=== PATIENT | female | born 1995 | race Caucasian/White ===

== ENCOUNTER 2021-03-23 13:52 | Emergency (ER) | payer BC, SELFPAY ==
[2021-03-23 13:55] VITALS: BP 126/90; PULSE 120; RESP 20; TEMP 36; O2SAT 100
--- NOTE | 2021-03-23 14:00 | DI.US_ITS ---
Exam(s) US ABDOMEN EXAM: US ABDOMEN CLINICAL HISTORY: epigastric pain, vomiting TECHNIQUE: Ultrasound abdomen performed using standard protocol. COMPARISON: No exams were available for comparison FINDINGS: ABDOMINAL AORTA AND IVC: Visualized portions normal caliber. PANCREAS: Normal where visualized. LIVER: Normal. Hepatopedal flow in the Portal Vein. The liver measures 13.7 cm long. GALLBLADDER: Mobile gallstones. No evidence of wall thickening. No pericholecystic fluid identified. There is sludge seen within the gallbladder. BILIARY SYSTEM: Common bile duct measures 7.7 mm. No intrahepatic biliary ductal dilation. There are 2 echogenic foci seen in the common bile duct suspicious for choledocholithiasis. They each measure 4 mm. VINCENT'S SIGN: Negative. KIDNEYS: Kidneys are symmetric in size. No evidence of renal calculi. No evidence of hydronephrosis. No renal mass or cyst identified. SPLEEN: Not enlarged. ASCITES: None seen. IMPRESSION: 1. Cholelithiasis and gallbladder sludge. No gallbladder wall thickening or pericholecystic fluid. There is a negative sonographic Vincent sign. 2. Findings suspicious for choledocholithiasis. Mildly enlarged common bile duct at 7.7 mm. 3. Results of this exam have been verbally communicated with provider. DATA REPOSITORY:
--- NOTE | 2021-03-23 14:10 | W.ED.GENAD ---
Discharge Plan Disposition Patient Disposition: HOME Condition: Improving Discharge Details Clinical Impression: Choledocholithiasis, Left against medical advice Primary Care Provider: None,None ED Provider: Rashi Palacios Home Meds and New Rx's Prescriptions: Discontinued bismuth subsalicylate [Pepto-Bismol] 262 mg/15 mL Suspension PO RF: 0 Discharge Instructions Additional Instructions: You are electing to leave AGAINST MEDICAL ADVICE. Your risks include worsening pain, development of fever or infection, seizure, or possibly . As we discussed you have a common bile duct stone causing obstruction and jaundice. I discussed your case with on-call gastroenterology at [facility], Dr. Barry. He recommended admission which we discussed and you have declined. The gastroenterology team will reach out to you on your home phone number tomorrow. The main contact number at [facility] is [phone] Return at any time for reevaluation. Observe a bland or even liquid diet. Medical Decision Making Pleasant and delightful 26-year-old female presents with 4 to 5 days of intermittent episodes of postprandial epigastric pain. Initially was associated with vomiting which has resolved. This morning she had less pain after eating a small meal but noticed that her eyes looked yellow, and therefore referred to the ER for evaluation. Patient arrives ER afebrile, with a borderline resting tachycardia. Differential diagnosis includes acute cholecystitis, choledocholithiasis, liver mass. Patient declined IV access, had blood draw and was referred for laboratory testing and abdominal ultrasound. Patient's ultrasound, FINDINGS: ABDOMINAL AORTA AND IVC: Visualized portions normal caliber. PANCREAS: Normal where visualized. LIVER: Normal. Hepatopedal flow in the Portal Vein. The liver measures 13.7 cm long. GALLBLADDER: Mobile gallstones. No evidence of wall thickening. No pericholecystic fluid identified. There is sludge seen within the gallbladder. BILIARY SYSTEM: Common bile duct measures 7.7 mm. No intrahepatic biliary ductal dilation. There are 2 echogenic foci seen in the common bile duct suspicious for choledocholithiasis. They each measure 4 mm. MCNULTY'S SIGN: Negative. KIDNEYS: Kidneys are symmetric in size. No evidence of renal calculi. No evidence of hydronephrosis. No renal mass or cyst identified. SPLEEN: Not enlarged. ASCITES: None seen. IMPRESSION: 1. Cholelithiasis and gallbladder sludge. No gallbladder wall thickening or pericholecystic fluid. There is a negative sonographic Mcnulty sign. 2. Findings suspicious for choledocholithiasis. Mildly enlarged common bile duct at 7.7 mm. Laboratories: White blood cell count 7, hematocrit 43, platelets 295. Chemistries are notable for total bili of 10.7, AST 85, ALT 357, alk phos 187. Lipase is 80. BUN 15 with creatinine 0.6. Case discussed with on-call gastroenterology at [facility], Dr. Barry. He recommends admission, n.p.o. after midnight with potential for transfer for ERCP tomorrow. We did discuss that the patient may refuse admission, which she has, and that the gastroenterology department would reach out to her at home by phone tomorrow. Patient demonstrates decision-making capacity to me. We discussed the risks of leaving AGAINST MEDICAL ADVICE including worsening, infection, seizure, or . She understands these risks and accepts them. She understands the need for ERCP. She understands she may return at any time for reevaluation. HPI General Mode of arrival: ambulatory. Date/Time Provider Initiated Documentation: 03/23/21 13:52. Limitations to Documentation: no limitations. Information obtained by: patient. History of Present Illness 26 year old F presents to the emergency department with the chief complaint of Epigastric pain postprandial pain 4 days, described as moderate, Quality is described as dull, and is localized to the abdomen. Patient reports no radiation. Patient started experiencing this day(s) and it has been intermittent and now resolved. No relieving factors improve symptom(s), Eating worsens symptoms . Patient notes loss of appetite and nausea/vomiting; denies fever/chills. Patient did receive the following treatments prior to arrival, none Related Data Allergies Allergy/AdvReac Type Severity Reaction Status Date / Time nickel Allergy Intermediate rash Verified 03/23/21 14:00 General Stated Complaint: Abd Prob FLORENTIN: 3 Review of Systems Narrative: No fever. Normal bowel movements although they were dark in color after Pepto-Bismol. Denies recent illness. 6 systems reviewed and otherwise negative [facility] Active Problem List (Updated 03/23/21 @ 17:35 by Rashi Palacios MD) Choledocholithiasis (Acute) Left against medical advice (Acute) Abdominal pain (Acute) Endometriosis (Chronic) Medical History (Updated 03/23/21 @ 17:35 by Rashi Palacios MD) Delayed postoperative wound closure Intra-abdominal abscess (~05/2019) history of intra-abdominal abscess & pelvis abscess 05/23/[address] Chaudhari [facility] Recurrent left pleural effusion Surgical History History of appendectomy History of exploratory laparotomy History of thoracentesis Status post PICC central line placement (~05/24/19) Social History Smoking/Tobacco Use Status: Never Smoking risk assessment performed?: Yes Drug use: Never Substance use type: marijuana Do you feel safe at home: Yes Do you feel safe in your relationship?: Yes Exam Narrative Exam Narrative: GEN: awake, alert, oriented 3. Pleasant, well groomed, interactive. HEAD: Normocephalic, atraumatic ENT: Mucous membranes moist, oropharynx unremarkable, External ear exam unremarkable EYES: PERRL, EOMI, scleral icterus NECK: Full ROM, no GAETANO, no menigismus CHEST/RESP: Nontender, clear to auscultation bilateral, no wheeze/rhonchi/rales CARDIOVASCULAR:regular and tachycardic, no murmur, rub alma delia. 2+ Rad pulse bilateral ABDOMEN: Soft, no significant tenderness on exam, no mass. +Bowel sounds EXT: Full ROM, no edema, no rash Neuro: Grossly normal neurologic exam, conversant, interactive. Psych: Speech fluent, thoughts congruent, affect normal Course Vital Signs Vital signs: Vital Signs Temperature 36 C L 03/23/21 13:55 Pulse 120 H 03/23/21 13:55 Respiratory Rate 20 03/23/21 13:55 Blood Pressure 126/90 03/23/21 13:55 Pulse Oximetry 100 03/23/21 13:55 Temperature 36 C L 03/23/21 13:55 Temperature Source Temporal Artery Scan 03/23/21 13:55 Pulse 120 H 03/23/21 13:55 Respiratory Rate 20 03/23/21 13:55 Respiratory Effort 03/23/21 14:02 Blood Pressure 126/90 03/23/21 13:55 Pulse Oximetry 100 03/23/21 13:55 Oxygen Delivery Method Room Air 03/23/21 13:55 Oxygen Flow Rate 0 03/23/21 13:55 Pain Level 0 03/23/21 13:55
[2021-03-23 14:35] LABS: Bilirubin Moderate (Negative); Blood Trace-intact (Negative); Clarity Clear (Clear); Glucose Negative (Negative); Ketones 15 mg/dL (Negative); Leukocyte Esterase Trace (Negative); Nitrite Negative (Negative); Urobilinogen 0.2 EU/dL (Up TO 0.2)
[2021-03-23 14:44] LABS: Bacteria Few HPF (Negative); C & S Indicated? No; Casts Negative LPF (Negative); Crystals Negative HPF (Negative); Epithelial Cells Many HPF (Negative); Mucus Negative (Negative)
[2021-03-23 15:08] VITALS: PULSE 80
--- NOTE | 2021-03-23 15:08 | NUR.NOTE ---
pt refused an IV Nursing Note:
[2021-03-23 15:13] LABS: Abs Immature Grans 0.06 10^3/uL (0.0-0.06); Absolute Basophil Count 0.06 10^3/uL (0.0-0.2); Absolute Eosinophil Count 0.07 10^3/uL (0.0-0.7); Absolute Lymphocyte Count 1.24 10^3/uL (1.2-3.4); Absolute Monocyte Count 0.68 10^3/uL (0.1-0.8); Basophils % 0.8; Eosinophils % 0.9; HCT 43.2 % (36.0-46.0); HGB 15.4 g/dL (11.2-15.7); Immature Grans % 0.8; Lymphocytes % 16.1; MCH 29.8 pg (27.0-33.0); MCHC 35.6 % (32.0-36.0); MCV 83.7 fL (80-95); MPV 9.6 fL (8.0-11.0); Monocytes % 8.8; Neutrophils % 72.6; Nucleated RBC 0 %; Platelet Count 295 10^3/uL (130-400); RBC 5.16 10^6/uL (3.93-5.22); RDW 11.6 % (11.7-14.6); WBC 7.71 10^3/uL (4.4-10.8)
[2021-03-23 15:28] VITALS: BP 122/79; PULSE 88; RESP 16; TEMP 36.9; O2SAT 99
[2021-03-23 15:41] LABS: ALT 357 U/L (14-59); AST 85 U/L (15-37); Albumin 4.5 g/dL (3.4-5.0); Alkaline Phosphatase 187 U/L (46-116); Anion Gap 12.9 mmol/L (3-11); BUN 15 mg/dL (7-18); Bilirubin, Total 10.7 mg/dL (0.2-1.0); CO2 22.1 mmol/L (21.0-32.0); CREATININE 0.6 mg/dL (0.55-1.02); Calcium 9.3 mg/dL (8.5-10.1); Chloride 101 mmol/L (98-107); Glucose 93 mg/dL (74-106); Lipase 80 U/L (73-393); Magnesium 2.2 mg/dL (1.8-2.4); Potassium 3.7 mmol/L (3.5-5.1); Sodium 136 mmol/L (136-145); Total Protein 8.6 g/dL (6.4-8.2)
--- NOTE | 2021-03-25 10:17 | CMACTNOTE_ITS ---
- If Service Date Differs Date of service: 03/25/21 Time of Service: 10:18 Care Management Activity Note Dominique is seen in the ED for choledocholithiasis. At the request of ED provider, CM coordinates a referral to MAXIMILIAN García, of [facility], on-call provider, to assist Dominique in obtaining a follow up appointment and in establishing care with a PCP.
== END 2021-03-23 17:45 | disposition home or self-care (01) ==
PROVIDERS: Emergency Provider Emergency Medicine
DX: K80.70 Calculus of gallbladder and bile duct without cholecystitis without obstruction (principal); R10.13 Epigastric pain; R17 Unspecified jaundice; Z53.29 Procedure and treatment not carried out because of patient's decision for other reasons
CPT/HCPCS: 36415; 80053; 81025; 83690; 99284; 76700; 81003; 81015; 83735; 85025

== ENCOUNTER 2021-03-25 13:34 | Outpatient (CLI) | payer BC, SELFPAY ==
[2021-03-25 15:48] LABS: ALT 257 U/L (14-59); AST 88 U/L (15-37); Albumin 4.4 g/dL (3.4-5.0); Alkaline Phosphatase 171 U/L (46-116); Anion Gap 18.8 mmol/L (3-11); BUN 14 mg/dL (7-18); Bilirubin, Total 8.8 mg/dL (0.2-1.0); CO2 18.2 mmol/L (21.0-32.0); CREATININE 0.6 mg/dL (0.55-1.02); Calcium 9.3 mg/dL (8.5-10.1); Chloride 98 mmol/L (98-107); Glucose 81 mg/dL (74-106); Lipase 77 U/L (73-393); Potassium 3.7 mmol/L (3.5-5.1); Sodium 135 mmol/L (136-145); Total Protein 8.5 g/dL (6.4-8.2)
== END 2021-03-25 13:35 | disposition home or self-care (01) ==
LOC: LBO 13:35
PROVIDERS: Visit Provider Surgery
DX: K80.50 Calculus of bile duct without cholangitis or cholecystitis without obstruction (principal); R10.31 Right lower quadrant pain
CPT/HCPCS: 36415; 80053; 83690; 86140